=== PATIENT | male | born 1965 | race American Indian/Alaskan Native ===

== ENCOUNTER 2024-12-22 02:46 | Emergency (ER) | payer MEDICAID, SELFPAY ==
[2024-12-22 02:53] VITALS: PULSE 76; RESP 18; O2SAT 100
--- NOTE | 2024-12-22 02:55 | EKG_ITS ---
[facility] Test Date: 2024-12-22 Pat Name: TEETEE HOLLIDAY Department: Room: - Gender: Male Front End Developer: : 1965 Requested By: Hood Moon Order Number: [id number] Reading MD: Hood Moon Measurements Intervals [place] Rate: 81 P: 54 IL: 145 QRS: -3 QRSD: 110 T: 60 QT: 389 QTc: 452 Interpretive Statements SINUS RHYTHM MINIMAL VOLTAGE CRITERIA FOR LVH, CONSIDER NORMAL VARIANT [MEETS CRITERIA IN ONE OF: R(aVL), S(V1), R(V5), R(V5/V6)+S(V1)] No previous ECG available for comparison /store/S0/[id number]/ecg/[id number].pdf
[2024-12-22 03:21] VITALS: BP 131/90; PULSE 83; RESP 19; TEMP 37.1; O2SAT 99
--- NOTE | 2024-12-22 03:32 | XR_ITS ---
Examination: CT lumbar spine, without contrast. 2-D sagittal reconstructions. 2-D coronal reconstructions. 3-D reconstructions. Date and time of exam:December 22, 2024 0516 hours INDICATIONS: Low back pain beginning 2 days ago CTDI: vol (mGy):16.7 DLP: (mGycm):487 Technique: Multiple 1.25 mm axial sections of the lumbar spine without intravenous contrast have been obtained. 2-D sagittal and coronal reconstructions have been obtained. 3-D reconstructions have been obtained. Low dose protocols were performed. One or more of the following dose reduction techniques were used; automated exposure control, adjustment of the mA and/or KV according to patient size, use of iterative reconstruction technique. Findings: Adequate alignment lumbar vertebral bodies on the lateral view Grade 1 spondylolisthesis L5 on S1, moderate disc narrowing posteriorly at L4-L5, L5-S1 Prominent lumbar spondylosis Prominent Schmorl's node inferior L4 Number pedicles, laminae transverse and posterior spinous processes intact L5-S1 2 mm calcified central lumbar disc bulge with moderate bilateral neural foraminal stenosis and mild bilateral L5 ganglionic impression L4-L5 3 mm calcified central lumbar disc bulge L3-L4 2 mm central lumbar disc bulge L2-L3 no disc protrusion L1-L2 no disc protrusion IMPRESSION: L5-S1 grade 1 spondylolisthesis and 2 mm central lumbar disc bulging extending into the foraminal region produces mild bilateral L5 ganglionic compression L4-L5 3 mm intramammary disc bulge. L3-L4 2 mm central lumbar disc bulge MRI lumbar spine follow-up would best assess for acquired spinal stenosis
--- NOTE | 2024-12-22 03:32 | XR_ITS ---
Examination: AP chest single view Admitting: AP upright portable chest single view Exam date and time: December 22, 2024 at 0345 hours Comparison June 16, 2024 FINDINGS: Mild prominence left ventricle. No pneumonia or pulmonary edema. Small probable granuloma mid left lung IMPRESSION: No pneumonia or pulmonary edema
--- NOTE | 2024-12-22 03:32 | PD.EDRME ---
Rapid Medical Screening Exam [facility] Arrival date/time: 12/22/24 02:46 59M with history of homelessness and drug use presents to ED with BLE pain and weakness. Possible back pain. Some SOB. There is also generalized weakness. Chief Complaint: Shortness of Breath/Dyspnea Time Seen by Provider: 12/22/24 02:51 Vital signs: Vital Signs Temperature 98.7 F 12/22/24 03:21 Pulse Rate 83 12/22/24 03:21 Respiratory Rate 19 12/22/24 03:21 Blood Pressure 131/90 H 12/22/24 03:21 Pulse Oximetry (%) 99 12/22/24 03:21 Oxygen Delivery Method Room Air 12/22/24 03:21
[2024-12-22 03:58] LABS: Basophils # (Auto) 0.1 Thou/mm3 (0.0-0.2); Basophils % (Auto) 1 % (0-2.5); Eosinophils # (Auto) 0.1 Thou/mm3 (0.0-0.5); Eosinophils % (Auto) 1 % (0-10); Hematocrit 37.7 % (41.0-53.0); Hemoglobin 12.7 g/dL (13.5-16.0); Immature Granulocytes % (Auto) 0 % (0-0); Immature Granulocytes Auto 0.02 Thou/mm3 (0.00-0.00); Lymphocytes # (Auto) 1.8 Thou/mm3 (1.0-4.8); Lymphocytes % (Auto) 18 % (10-50); Mean Corpuscular HGB Conc 33.7 g/dl (31.0-37.0); Mean Corpuscular Volume 89 fL (80-100); Monocytes # (Auto) 0.6 Thou/mm3 (0.0-0.8); Monocytes % (Auto) 7 % (0-12); Neutrophils # (Auto) 7.1 Thou/mm3 (1.8-7.7); Neutrophils % (Auto) 74 % (37-80); Nucleated Red Blood Cell % 0 /100 WBC (0); Platelet Count 223 Thou/mm3 (140-440); Red Blood Count 4.23 Miln/mm3 (4.50-5.90); White Blood Count 9.6 Thou/mm3 (3.8-10.6)
[2024-12-22 04:26] LABS: Alanine Aminotransferase 8 U/L (10-49); Albumin, Serum 4.3 gm/dL (3.4-4.8); Albumin/Globulin Ratio 1.7 (1.2-2.2); Alkaline Phosphatase 121 U/L (46-116); Anion Gap 10 (7-16); Aspartate Amino Transferase 18 U/L (0-34); BUN/Creatinine Ratio 14 Ratio (12-20); Bilirubin,Total 0.6 mg/dL (0.3-1.2); Blood Urea Nitrogen 20 mg/dL (9-23); Carbon Dioxide 24.2 mMol/L (20.0-31.0); Chloride 107 mMol/L (98-107); Creatine Kinase 195 U/L (34-171); Creatinine (Component) 1.4 mg/dL (0.6-1.3); Globulin 2.5 gm/dL (2.3-3.5); Glucose 125 mg/dL (74-106); Magnesium 2.2 mg/dL (1.6-2.6); Osmolality,Calculated 284 (275-295); Potassium 3.6 mMol/L (3.4-5.1); Sodium 141 mMol/L (136-145); Total Protein 6.8 gm/dL (5.7-8.2); eGFR 57 See Note
[2024-12-22 04:30] LABS: B-Type Natriuretic Peptide < 20 pg/mL (0-100)
[2024-12-22 04:38] LABS: Troponin I < 0.020 ng/mL (0.0-0.045)
--- NOTE | 2024-12-22 06:14 | PRELIM_ITS ---
CT scan of the lumbar spine without intravenous contrast (axial sections with sagittal and coronal reformats) December 22, 2024 0516 hours Clinical History: Bilateral lower leg weakness/pain Comparison: No prior study is available for comparison. Findings: There is no acute lumbar fracture or traumatic subluxation. The paravertebral soft tissues are unremarkable. Ankylosis of the 11, T12, L1 and L2 vertebral bodies. Schmorl's node in the inferior endplate of L4. Chronic bilateral L5 pars interarticularis defects. Impression: No evidence of acute lumbar fracture or traumatic subluxation. No definite neural impingement. Consider MRI For more sensitive evaluation. Report Electronically Signed By: Sixto Blair 12/22/2024 6:13:46 AM [EST]
[2024-12-22 07:53] VITALS: BMI 25.0
--- NOTE | 2024-12-22 08:27 | PC.NURSE ---
DR THOMPSON AT BEDSIDE
--- NOTE | 2024-12-22 08:31 | EDNOTE_ITS ---
ED General RME/HPI General Chief complaint: Shortness of Breath/Dyspnea Stated complaint: SOB, BILAT LEG PAIN Time Seen by Provider: 12/22/24 02:51 Arrival date/time: 12/22/24 02:46 RME / HPI RME / HPI narrative: 12/22/24 02:46 59M with history of homelessness and drug use presents to ED with BLE pain and weakness. Possible back pain. Some SOB. There is also generalized weakness DR. HOLLINGSWORTH MAIN ED EVALUATION: 59 year old male with a history of hypertension and methamphetamine abuse presented to the ER with a complaint of whole body cramps, chest pain and SOB. Patient stated, I feel like somebody stood on top of me and I can't breathe no more. Per patient, denies taking pain medication for his legs but states, my legs are feeling better. Denies fever, chills, sweats. Denies difficulty urinating. Related Data Previous Rx's ?Medication ?Instructions ?Recorded acetaminophen 500 mg tablet 1,000 mg (2 x 500 mg) PO Q 6H PRN 07/20/22 (Tylenol Extra Strength) fever or pain #30 tabs doxycycline hyclate 100 mg tablet 100 mg PO BID #14 ta bs 06/18/24 pantoprazole 40 mg tablet,delayed 40 mg PO QDAY #30 ta bs 06/18/24 release Allergies Allergy/AdvReac Type Severity Reaction Status Date / Time No Known Allergies Allergy Verified 06/19/24 06:31 Review of Systems Review of Systems Systems Reviewed: All systems reviewed, normal except as documented Narrative Review of Systems: Gen: No fever, no chills, no weight loss EYES: No discharge, no visual changes, no pain HEENT: No ear pain, no congestion, no sore throat PULM: +shortness of breath, no cough, no congestion CV: +chest pain, no dyspnea on exertion, no palpitations GI: No nausea, no vomiting, no diarrhea, +pain, no constipation : No frequency, no urgency, no dysuria Musc/skel: +back pain, +leg pain Skin: No rash Psyc: No hallucinations, no depression Heme/Lymph: No easy bleeding or bruising tendencies Neuro: No weakness, no headache Past Medical History Past Medical History CARDIAC: Positive Cardiac Disorders and Hypertension GASTROINTESTINAL: Positive Gastrointestinal Disorders and Obstructive Bowel PSYCHO/SOCIAL: Positive Recreational Drug Use Family History FAMILY HISTORY: Negative Family Psychiatric Problems, Family Respiratory Disorders, Family Gastrointestinal Problems, Family Cancer, Family Surgery or Family Anesthesia Reaction Surgical History SURGICAL: Positive Abdominal Surgery and Joint Replacement (right elbow surgery); Negative Nephrectomy or Neurologic Surgery Social History SMOKING STATUS: Never smoker SECOND HAND EXPOSURE: No SUBSTANCE USE: does not use and amphetamines ED Exam Narrative Physical exam: GENERAL APPEARANCE: alert and oriented x 4, well-developed, well-nourished, no acute distress HEENT: Normocephalic, atraumatic; pupils equal, round, reactive to light; EOMI; mucous membranes pink, moist; oropharynx clear NECK: Supple LUNGS: CTABL; no wheezes, no rales, no rhonchi HEART: Regular rate, regular rhythm; normal S1, S2; no murmurs ABDOMEN: non distended; normal BS; soft, no tenderness, no guarding, no rebound; no masses, no organomegaly, no hernia BACK: no CVA tenderness EXTREMITIES: atraumatic; no edema NEUROLOGIC: awake; alert and oriented x4; cranial nerves II-XII grossly intact; no focal sensory or motor deficits PSYCHIATRIC: appropriate mood and affect SKIN: warm, dry, normal color; no rashes Course Course Course Narrative: Chest x-ray has been ordered due to determining etiology of chest pain, shortness of breath. Quality Measures none Orders Category Date Time Status EKG (ED ONLY) *Do not use* NOW Care 12/22/24 02:[address] lumbar spine wo con Stat Exams 12/22/24 03:32 Completed EKG (ED Only) Stat Exams 12/22/24 02:55 Draft XR chest 1V portable Stat Exams 12/22/24 03:32 Completed B-Type Natriuretic Peptide Stat Lab 12/22/24 03:43 Completed CBC Stat Lab 12/22/24 03:43 Completed Comprehensive Metabolic Panel Stat Lab 12/22/24 03:43 Completed Creatine Kinase Stat Lab 12/22/24 03:43 Completed Magnesium Stat Lab 12/22/24 03:43 Completed Troponin I Stat Lab 12/22/24 03:43 Completed Vital Signs Vital signs: Vital Signs Temperature 98.7 F 12/22/24 03:21 Pulse Rate 83 12/22/24 03:21 Respiratory Rate 19 12/22/24 03:21 Blood Pressure 131/90 H 12/22/24 03:21 Pulse Oximetry (%) 99 12/22/24 03:21 Oxygen Delivery Method Room Air 12/22/24 03:21 Discharge Plan Plan Patient Disposition: HOME (Self Care) Prescriptions/Referrals Prescriptions/Med Rec: No Action doxycycline hyclate 100 mg tablet 100 mg PO BID Qty: 14 0RF pantoprazole 40 mg tablet,delayed release (DR/EC) 40 mg PO QDAY Qty: 30 0RF acetaminophen [Tylenol Extra Strength] 500 mg tablet 1,000 mg PO Q6H PRN (Reason: fever or pain) Qty: 30 0RF Referrals: No Primary/Family,Physician [Primary Care Provider] - In 1 week Problem List Clinical Impression: Muscle cramps Patient/Caregiver Discharge Instructions Education Materials: ED Leg Spasm Print Language: Arabic Stand Alone Forms: Sabrina Award Info., Patient Portal Info Letter MDM Patient Acuity Narrative: Marybel Crowell am scribing for and in the presence of Dr. Hollingsworth Clinical Information Provided by: patient Medical Records reviewed [facility] Meds/Rx considered, not ordered None Labs/Rad/Tests considered, not ordered None Chronic Illness/Social Conditions which may negatively complicate care or outcome(s)-explain: Homeless and ETOH/drugs/substance abuse EKG EKG Interpretation(s): EKG#1: EKG at 0319 hours.Interpreted by me: sinus rhythm, rate 81, mild IVCD, no ischemic changes Labs Labs: Interpreted by me Imaging Imaging interpretation: Interpreted by me Imaging Interpretation(s): Ordering Physician: Hood Moon PA-C Date of Service: 12/22/24 Procedure(s): CT lumbar spine wo [facility] Accession Number(s): [id number] cc: Ike Braswell MD; NO PRIMARY/FAMILY,PHYSICIAN; Hood Moon PA-C~ Examination: CT lumbar spine, without contrast. 2-D sagittal reconstructions. 2-D coronal reconstructions. 3-D reconstructions. Date and time of exam:December 22, 2024 0516 hours INDICATIONS: Low back pain beginning 2 days ago CTDI: vol (mGy):16.7 DLP: (mGycm):487 Technique: Multiple 1.25 mm axial sections of the lumbar spine without intravenous contrast have been obtained. 2-D sagittal and coronal reconstructions have been obtained. 3-D reconstructions have been obtained. Low dose protocols were performed. One or more of the following dose reduction techniques were used; automated exposure control, adjustment of the mA and/or KV according to patient size, use of iterative reconstruction technique. Findings: Adequate alignment lumbar vertebral bodies on the lateral view Grade 1 spondylolisthesis L5 on S1, moderate disc narrowing posteriorly at L4-L5, L5-S1 Prominent lumbar spondylosis Prominent Schmorl's node inferior L4 Number pedicles, laminae transverse and posterior spinous processes intact L5-S1 2 mm calcified central lumbar disc bulge with moderate bilateral neural foraminal stenosis and mild bilateral L5 ganglionic impression L4-L5 3 mm calcified central lumbar disc bulge L3-L4 2 mm central lumbar disc bulge L2-L3 no disc protrusion L1-L2 no disc protrusion IMPRESSION: L5-S1 grade 1 spondylolisthesis and 2 mm central lumbar disc bulging extending into the foraminal region produces mild bilateral L5 ganglionic compression L4-L5 3 mm intramammary disc bulge. L3-L4 2 mm central lumbar disc bulge MRI lumbar spine follow-up would best assess for acquired spinal stenosis Dictated By: Ike Braswell MD Signed By: <Electronically signed by Ike Braswell MD in OV> 12/22/2428 Ordering Physician: Hood Moon PA-C Date of Service: 12/22/24 Procedure(s): XR chest 1V portable Accession Number(s): [id number] cc: Ike Braswell MD; NO PRIMARY/FAMILY,PHYSICIAN; Hood Moon PA-C~ Examination: AP chest single view Admitting: AP upright portable chest single view Exam date and time: December 22, 2024 at 0345 hours Comparison June 16, 2024 FINDINGS: Mild prominence left ventricle. No pneumonia or pulmonary edema. Small probable granuloma mid left lung IMPRESSION: No pneumonia or pulmonary edema Dictated By: Ike Braswell MD Signed By: <Electronically signed by Ike Braswell MD in OV> 12/22/24 0803 Medication Administration(s) none Diagnosis Differential Diagnosis ED Complaint MDM: overuse, dehydration, electrolyte imbalances Diagnoses ruled out: Muscle cramps
--- NOTE | 2024-12-22 10:20 | PC.NURSE ---
PT TOLERATED PO FLUIDS AND JELLO. WILL DC AT THIS TIME PER DOCTORS ORDERS
[2024-12-22 10:33] VITALS: BP 115/75; PULSE 81; RESP 18; O2SAT 99
--- NOTE | 2024-12-22 10:40 | PC.SS ---
[employer] transportation requested by MARQUISE Potts to [id number] [facility] [id number]. ETA [id number]
== END 2024-12-22 10:33 | disposition home or self-care (01) ==
PROVIDERS: Physician Assistant; Emergency Provider Emergency Medicine
DX: M51.360 Other intervertebral disc degeneration, lumbar region with discogenic back pain only (principal); M51.370 Other intervertebral disc degeneration, lumbosacral region with discogenic back pain only; M43.17 Spondylolisthesis, lumbosacral region; G95.29 Other cord compression; R06.02 Shortness of breath; R53.1 Weakness; R07.9 Chest pain, unspecified; R94.31 Abnormal electrocardiogram [ECG] [EKG]; I10 Essential (primary) hypertension; Z59.00 Homelessness unspecified
CPT/HCPCS: 36415; 71045; 72131; 80053; 80307; 81001; 82550; 83735; 83880; 84484; 85025; 93005; 99284

== ENCOUNTER 2025-05-01 20:52 | Emergency (ER) | payer MEDICAID, SELFPAY ==
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
[2025-05-01 20:55] VITALS: BMI 28.2
[2025-05-01 20:56] VITALS: BP 131/88; PULSE 93; RESP 18; TEMP 36.8; O2SAT 97
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
[2025-05-01 21:00] VITALS: PULSE 92; RESP 18; O2SAT 98
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
--- NOTE | 2025-05-01 22:20 | PC.NURSE ---
[facility] SPEAKING TO PT.
[2025-05-01 23:52] VITALS: BP 150/100; PULSE 90; RESP 14; TEMP 37; O2SAT 99
== END 2025-05-01 23:53 | disposition home or self-care (01) ==
PROVIDERS: Emergency Provider Emergency Medicine
DX: S22.32XA Fracture of one rib, left side, initial encounter for closed fracture (principal); S83.005A Unspecified dislocation of left patella, initial encounter; Y04.0XXA Assault by unarmed brawl or fight, initial encounter; R51.9 Headache, unspecified
CPT/HCPCS: 70450; 70486; 71250; 72125; 73562; 74176; 99284